=== PATIENT | male | born 1930 | race Caucasian/White ===

== ENCOUNTER 2017-05-08 11:22 | Inpatient (IN) | payer OTHER ==
[~2017-05-08] VITALS: Ht 170.2 cm; Wt 82.6 kg
[2017-05-08 12:00] LABS: HEMATOCRIT 31.5 % (38.0-50.0); MCH 29.1 PG (29.0-34.0); MCHC 31.4 G/DL (30.0-36.0); MCV 92.6 FL (86-99); MEAN PLAT.VOLUME 11.6 uM^3 (9.0-12.4); PLATELET COUNT 172 K/uL (156-360); RBC DIS.WIDTH-CV 16.2 % (11.8-14.6); RBC DIS.WIDTH-SD 54.9 % (39-53); WHITE BLOOD COUNT 9.3 K/uL (4.1-10.2)
[2017-05-08 12:24] LABS: TROP-I INTERPRETATION NEGATIVE; TROPONIN-I 0.07 ng/mL (0.0-0.30)
[2017-05-08 12:25] LABS: CHLORIDE 111 mEq/L (99-109); SODIUM 141 mEq/L (136-147)
[2017-05-08 12:26] LABS: POTASSIUM 6.3 mEq/L (3.7-5.4)
[2017-05-08 12:27] LABS: GLUCOSE 108 mg/dL (70-99)
[2017-05-08 12:29] LABS: ANION GAP 12 MEQ/L (2-14)
[2017-05-08 12:31] LABS: GFR ESTIMATE (CALCULATED) 21 mL/min/
[2017-05-08 12:32] LABS: UREA NITROGEN (BUN) 88 mg/dL (9-23)
[2017-05-08] MEDS ORDERED: FOSINOPRIL SODI20 MG PO (14:06)
[2017-05-08] MEDS ORDERED: NIFEDIPINE ER90 MG PO (14:06)
[2017-05-08] MEDS ORDERED: ATORVASTATIN CA20 MG PO (14:07)
[2017-05-08] MEDS ORDERED: EZETIMIBE10 MG PO (14:07)
[2017-05-08] MEDS ORDERED: ASPIR 8181 M1 PO (14:08)
[2017-05-08] MEDS ORDERED: METHADONE5 MG PO (14:08)
[2017-05-08 15:37] LABS: METH RESISTANT S AUREUS PCR NEGATIVE (NEGATIVE); PROBE CHECK PASS; SPECIMEN PROCESSING CONTROL PASS
[2017-05-08 15:45] VITALS: BP 149/66
[2017-05-08 19:07] VITALS: BP 112/62
[2017-05-08 20:21] LABS: ANION GAP 13 MEQ/L (2-14); CHLORIDE 107 MEQ/L (99-109); GFR ESTIMATE (CALCULATED) 27 mL/min/; GLUCOSE 157 mg/dL (70-99); POTASSIUM 5.2 MEQ/L (3.7-5.4); SAMPLE HEMOLYSIS CHECK 0; SAMPLE ICTERIC CHECK 0; SAMPLE LIPEMIA CHECK 0; SODIUM 141 MEQ/L (136-147); UREA NITROGEN (BUN) 78 mg/dL (9-23)
[2017-05-08 20:28] LABS: TROP-I INTERPRETATION NEGATIVE; TROPONIN-I 0.11 ng/mL (0.0-0.30)
[2017-05-08 23:18] VITALS: BP 147/79
[2017-05-09 02:12] LABS: TROP-I INTERPRETATION NEGATIVE; TROPONIN-I 0.13 ng/mL (0.0-0.30)
[2017-05-09 05:56] LABS: HEMATOCRIT 33.2 % (38.0-50.0); MCH 28.6 PG (29.0-34.0); MCV 92.2 FL (86-99); MEAN PLAT.VOLUME 11.3 uM^3 (9.0-12.4); PLATELET COUNT 178 K/uL (156-360); RBC DIS.WIDTH-CV 15.6 % (11.8-14.6); RBC DIS.WIDTH-SD 53.4 % (39-53); WHITE BLOOD COUNT 10.6 K/uL (4.1-10.2)
[2017-05-09 06:58] LABS: ANION GAP 11 MEQ/L (2-14); CHLORIDE 108 MEQ/L (99-109); GFR ESTIMATE (CALCULATED) 29 mL/min/; IRON 34 MCG/DL (35-150); POTASSIUM 5.2 MEQ/L (3.7-5.4); SAMPLE HEMOLYSIS CHECK 0; SAMPLE ICTERIC CHECK 0; SAMPLE LIPEMIA CHECK 0; SODIUM 142 MEQ/L (136-147); UREA NITROGEN (BUN) 72 mg/dL (9-23)
[2017-05-09 07:04] LABS: GLUCOSE 80 mg/dL (70-99)
[2017-05-09 07:55] VITALS: BP 155/67
[2017-05-09 08:44] LABS: FERRITIN 14 NG/ML (22-322)
[2017-05-09 10:04] LABS: ALKALINE PHOSPHATASE 64 IU/L (3-129); DIRECT BILIRUBIN 0.1 mg/dL (0.0-0.3); TOTAL BILIRUBIN 0.4 MG/DL (0.0-1.0)
[2017-05-09 12:16] VITALS: BP 167/70
[2017-05-09 13:45] LABS: ADD MIUA? YES; BILIRUBIN NEGATIVE; BLOOD SMALL; COLOR STRAW ((YELLOW)); GLUCOSE (STRIP) NEGATIVE; KETONES NEGATIVE; LEUKOCYTES MODERATE; NITRITE NEGATIVE; PROTEIN (STRIP) NEGATIVE; SPECIFIC GRAVITY 1.012 (1.000-1.030); UROBILINOGEN 0.2 MG/DL (0.2-1.0)
[2017-05-09 14:00] LABS: BACTERIA NONE SEEN /HPF; EPITHELIAL CELLS RARE /HPF; MUCUS TRACE /LPF; RED BLOOD CELLS 0-5 /HPF (0-5); UCUL ADDED? YES; WHITE BLOOD CELLS 15-20 /HPF (0-5)
[2017-05-09 17:45] VITALS: BP 176/73
[2017-05-09 19:58] VITALS: BP 162/72
[2017-05-10 00:32] VITALS: BP 169/72
[2017-05-10 05:20] LABS: EOSINOPHIL (%) 1.4 % (0-5); EOSINOPHIL COUNT 0.2 K/uL (0-0.3); HEMATOCRIT 32.1 % (38.0-50.0); IMMATURE GRANULOCYTE (%) 0.3 % (0.0-0.7); INSTRUMENT ABS NEUTROPHIL CT 8.3 K/uL; LYMPHOCYTE COUNT 1.1 K/uL (1.0-2.8); MCH 29.8 PG (29.0-34.0); MCHC 33.3 G/DL (30.0-36.0); MCV 89.4 FL (86-99); MEAN PLAT.VOLUME 11.3 uM^3 (9.0-12.4); MONOCYTE (%) 10.7 % (3-12); MONOCYTE COUNT 1.2 K/uL (0-0.8); NEUTROPHIL (%) 77.6 % (45-76); NEUTROPHIL COUNT 8.3 K/uL (1.8-6.4); PLATELET COUNT 162 K/uL (156-360); RBC DIS.WIDTH-CV 15.3 % (11.8-14.6); RBC DIS.WIDTH-SD 50.6 % (39-53); RED BLOOD COUNT 3.59 M/uL (4.00-5.50); WHITE BLOOD COUNT 10.7 K/uL (4.1-10.2)
[2017-05-10 05:42] LABS: ALKALINE PHOSPHATASE 62 IU/L (3-129); ANION GAP 11 MEQ/L (2-14); CHLORIDE 101 MEQ/L (99-109); GFR ESTIMATE (CALCULATED) 32 mL/min/; SAMPLE HEMOLYSIS CHECK 0; SAMPLE ICTERIC CHECK 0; SAMPLE LIPEMIA CHECK 0; SODIUM 138 MEQ/L (136-147); UREA NITROGEN (BUN) 57 mg/dL (9-23)
[2017-05-10 05:43] LABS: GLUCOSE 103 mg/dL (70-99); POTASSIUM 4.1 MEQ/L (3.7-5.4)
[2017-05-10 05:44] LABS: TOTAL BILIRUBIN 0.5 MG/DL (0.0-1.0)
[2017-05-10 07:55] VITALS: BP 138/60
[2017-05-10 11:04] VITALS: BP 120/60
[2017-05-10 16:30] VITALS: BP 119/58
[2017-05-10 19:30] VITALS: BP 115/56
[2017-05-11 01:05] VITALS: BP 124/63
[2017-05-11 03:25] VITALS: BP 138/59
[2017-05-11 05:53] LABS: EOSINOPHIL (%) 1.9 % (0-5); EOSINOPHIL COUNT 0.2 K/uL (0-0.3); HEMATOCRIT 31.9 % (38.0-50.0); IMMATURE GRANULOCYTE (%) 0.3 % (0.0-0.7); INSTRUMENT ABS NEUTROPHIL CT 6.8 K/uL; LYMPHOCYTE COUNT 1.3 K/uL (1.0-2.8); MCH 30.2 PG (29.0-34.0); MCHC 33.9 G/DL (30.0-36.0); MCV 89.1 FL (86-99); MEAN PLAT.VOLUME 11.4 uM^3 (9.0-12.4); MONOCYTE (%) 12.5 % (3-12); MONOCYTE COUNT 1.2 K/uL (0-0.8); NEUTROPHIL (%) 71.6 % (45-76); NEUTROPHIL COUNT 6.8 K/uL (1.8-6.4); PLATELET COUNT 163 K/uL (156-360); RED BLOOD COUNT 3.58 M/uL (4.00-5.50); WHITE BLOOD COUNT 9.4 K/uL (4.1-10.2)
[2017-05-11 06:21] LABS: ALKALINE PHOSPHATASE 54 IU/L (3-129); ANION GAP 10 MEQ/L (2-14); CHLORIDE 100 MEQ/L (99-109); GFR ESTIMATE (CALCULATED) 32 mL/min/; GLUCOSE 99 mg/dL (70-99); MAGNESIUM 1.9 mg/dl (1.3-2.7); POTASSIUM 4.4 MEQ/L (3.7-5.4); SAMPLE HEMOLYSIS CHECK 0; SAMPLE ICTERIC CHECK 0; SAMPLE LIPEMIA CHECK 0; SODIUM 138 MEQ/L (136-147); TOTAL BILIRUBIN 0.5 MG/DL (0.0-1.0); UREA NITROGEN (BUN) 54 mg/dL (9-23)
[2017-05-11 07:01] VITALS: BP 134/62
[2017-05-11 11:08] VITALS: BP 142/60
[2017-05-11] MEDS ORDERED: SPIRIVA RESPIMAT4 GM IH (12:42)
[2017-05-11] MEDS ORDERED: CEFTIN500 MG PO (12:42)
[2017-05-11] MEDS ORDERED: PULMICORT FLEX90 MCG IH (12:42)
[2017-05-11] MEDS ORDERED: VENTOLIN HFA18 GM IH (12:42)
== END 2017-05-11 15:45 | disposition home or self-care (01) | DRG 242 ==
LOC: EME 11:22 → 4EAST 13:13 → EDOF 13:13 → ENRESERV 13:35 → 4EAST 17:28
PROVIDERS: Emergency Medicine; Hospitalist; Internal Medicine
DX: I44.2 Atrioventricular block, complete (principal); N17.0 Acute kidney failure with tubular necrosis; I50.31 Acute diastolic (congestive) heart failure; J18.9 Pneumonia, unspecified organism; J96.01 Acute respiratory failure with hypoxia; E87.5 Hyperkalemia; J84.10 Pulmonary fibrosis, unspecified; I27.20 Pulmonary hypertension, unspecified; I13.0 Hypertensive heart and chronic kidney disease with heart failure and stage 1 through stage 4 chronic kidney disease, or unspecified chronic kidney disease; N18.3 Chronic kidney disease, stage 3 (moderate); I44.7 Left bundle-branch block, unspecified; J98.11 Atelectasis; I25.10 Atherosclerotic heart disease of native coronary artery without angina pectoris; E78.5 Hyperlipidemia, unspecified; I08.0 Rheumatic disorders of both mitral and aortic valves; E66.9 Obesity, unspecified; Z68.30 Body mass index [BMI] 30.0-30.9, adult; Z95.5 Presence of coronary angioplasty implant and graft; Z85.51 Personal history of malignant neoplasm of bladder; Z79.82 Long term (current) use of aspirin
CPT/HCPCS: 71010; 71020; 71250; 76000; 76770; 80048; 80048 91; 80053; 80076; 81003; 82607; 82728; 83540; 83735; 83880; 84100; 84443; 84466; 84484; 85025; 85027; 87086; 87641; 93005; 93306; 93970; 94010; 94640; 94640 76; 94799; 99202; 99281; 99285; C1785; C1892; C1894; C1898; J0456; J0610; J0690; J0696; J1200; J1644; J1940; J2250; J2270; J3010; J7050; S0020; S0028

== ENCOUNTER 2018-01-08 09:28 | Day surgery (SDC) | payer OTHER ==
[~2018-01-08] VITALS: Ht 170.2 cm; Wt 81.6 kg
[~2018-01-08 09:28] MED LIST: ADULT ONE DAIL0.4 MG PO; ASPIR 8181 M1 PO; ATORVASTATIN CA20 MG PO; CEFTIN500 MG PO; COLACE100 MG PO; EZETIMIBE10 MG PO; FOSINOPRIL SODI20 MG PO; GRALISE300 MG PO; METHADONE5 MG PO; MOBIC15 MG PO; NIFEDIPINE ER90 MG PO; PULMICORT FLEX90 MCG IH; SPIRIVA RESPIMAT4 GM IH; VENTOLIN HFA18 GM IH; VITAMIN D31000 UNIT PO
== END 2018-01-08 11:03 | disposition home or self-care (01) ==
LOC: PAIN 09:28 → SDC 09:45 → PAIN 09:45
DX: M47.816 Spondylosis without myelopathy or radiculopathy, lumbar region (principal); M51.36 Other intervertebral disc degeneration, lumbar region; M48.061 Spinal stenosis, lumbar region without neurogenic claudication; M41.9 Scoliosis, unspecified
CPT/HCPCS: J1030; S0020